=== PATIENT | female | born 2000 | race Caucasian/White ===

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

== ENCOUNTER 2023-10-18 10:44 | Emergency (ER) | payer OTHER ==
[2023-10-18 10:50] VITALS: RESP 16; TEMP 98.5
--- NOTE | 2023-10-18 11:42 | ED ---
Female Urogenital HPI - General Chief complaint: Vaginal Bleeding Stated complaint: 7wks preg,bleeding Time Seen by Provider: 10/18/23 11:40 Source: patient, RN notes reviewed Mode of arrival: ambulatory Limitations: no limitations - History of Present Illness Initial comments: 22-year-old female G3, P1 at approximately 7 weeks gestation presenting with vaginal bleeding x 1 day with associated abdominal cramping. States she noticed bright red blood when she wiped earlier today and has had light vaginal spotting since with bilateral pelvic cramping. Denies urinary symptoms, syncope, lightheadedness, vomiting. - Related Data Home Medications Medication Instructions Recorded Confirmed Norelgestromin/Ethin.estradiol 1 patch TRANSDERM MO 10/30/20 10/30/20 [Xulane 150-35 Mcg/Day Patch] Allergies Allergy/AdvReac Type Severity Reaction Status Date / Time No Known Allergies Allergy Verified 10/18/23 10:50 Review of Systems ROS Statement: Those systems with pertinent positive or pertinent negative responses have been documented in the HPI. ROS Other: All systems not noted in ROS Statement are negative. Past Medical History Past Medical History: No Reported History Additional Past Medical History / Comment(s): depression, self-harm - cutting, ovarian cyst History of Any Multi-Drug Resistant Organisms: None Reported Past Surgical History: No Surgical Hx Reported Past Anesthesia/Blood Transfusion Reactions: No Reported Reaction Past Psychological History: Depression Smoking Status: Current every day smoker Past Alcohol Use History: None Reported Past Drug Use History: None Reported - Past Family History Mother Family Medical History: Hypertension General Exam Limitations: no limitations General appearance: alert, in no apparent distress Head exam: Present: atraumatic, normocephalic, normal inspection Eye exam: Present: normal appearance, PERRL, EOMI. Absent: scleral icterus, conjunctival injection, periorbital swelling GI/Abdominal exam: Present: soft, normal bowel sounds. Absent: distended, tenderness, guarding, rebound, rigid Back exam: Absent: CVA tenderness (R), CVA tenderness (L) Neurological exam: Present: alert, oriented X3 Psychiatric exam: Present: normal affect, normal mood Skin exam: Present: warm, dry, intact, normal color. Absent: rash Course Vital Signs 10/18/23 10:48 Temperature 98.5 F Pulse Rate 80 Respiratory 16 Rate Blood Pressure 115/79 O2 Sat by Pulse 98 Oximetry Medical Decision Making - Medical Decision Making Was pt. sent in by a medical professional or institution (, PK, COMMERCIAL DRAFTER, urgent care, hospital, or care home...) When possible be specific @ -No Did you speak to anyone other than the patient for history (EMS, parent, family, police, friend...)? What history was obtained from this source @ -No Did you review nursing and triage notes (agree or disagree)? Why? @ -I reviewed and agree with nursing and triage notes Were old charts reviewed (outside hosp., previous admission, EMS record, old EKG, old radiological studies, urgent care reports/EKG's, care home records)? Report findings @ -Previous lab work reviewed from 04/21/2019-patient is blood type O+ Differential Diagnosis (chest pain, altered mental status, abdominal pain women, abdominal pain men, vaginal bleeding, weakness, fever, dyspnea, syncope, headache, dizziness, GI bleed, back pain, seizure, CVA, palpatations, mental health, musculoskeletal)? @ -Differential Vaginal Bleeding: Spontaneous , threatened , molar , ectopic , bloody show, incompetent cervix, abruptioplacenta, placenta previa, uterine rupture, dysfunctional uterine bleeding, hemorrhage, uterine fibr oids, this is not meant to be an all-inclusive list. EKG interpreted by me (3pts min.). @ -None X-rays interpreted by me (1pt min.). @ -None done CT interpreted by me (1pt min.). @ -None done U/S interpreted by me (1pt. min.). @ -Ultrasound revealed single intrauterine gestational sac, pole not identified. Mean sac diameter of 1.14 cm compatible with 6 weeks 2 days gestation, possible blighted ovum What testing was considered but not performed or refused? (CT, X-rays, U/S, labs)? Why? @ -Blood type and screen and performed due to known blood type of O+ on 04/21/2019 What meds were considered but not given or refused? Why? @ -None Did you discuss the management of the patient with other professionals (professionals i.e. [place], COMMERCIAL DRAFTER, lab, RT, psych nurse, licensed social worker, auto heater mechanic, teacher, registration officer, case assembler)? Give summary @ -No Was smoking cessation discussed for >3mins.? @ -No Was critical care preformed (if so, how long)? @ -No Were there social determinants of health that impacted care today? How? (Homelessness, low income, unemployed, alcoholism, drug addiction, trans portation, low edu. Level, literacy, decrease access to med. care, [facility], rehab)? @ -No Was there de-escalation of care discussed even if they declined (Discuss DNR or withdrawal of care, Hospice)? DNR status @ -No What co-morbidities impacted this encounter? (DM, HTN, Smoking, COPD, CAD, Cancer, CVA, ARF, Chemo, Hep., AIDS, mental health diagnosis, sleep apnea, morbid obesity)? @ -None Was patient admitted / discharged? Hospital course, mention meds given and route, prescriptions, significant lab abnormalities, going to OR and other pertinent info. @ -Patient was discharged. Patient was seen and evaluated for vaginal bleeding x 1 day at approximately 7 weeks gestation. Vital signs are within normal limits. No abdominal tenderness to palpation of abdomen. Lab work including CBC, CMP, lactic acid was unremarkable. Hemoglobin is stable 13.6. Beta-hCG 3860.9. Ultrasound reveals single intrauterine gestational sac, pole not identified. Discussed findings and diagnosis of threatened with patient. Advised to follow-up in 2 days for repeat hCG levels. Return precauti ons discussed and patient is agreeable to plan. Case was discussed with my ED attending Dr. Rosario. Patient discharged in stable condition. Undiagnosed new problem with uncertain prognosis? @ -No Drug Therapy requiring intensive monitoring for toxicity (Heparin, Nitro, Insulin, Cardizem)? @ -No Were any procedures done? @ -No Diagnosis/symptom? @ -Threatened Acute, or Chronic, or Acute on Chronic? @ -Acute Uncomplicated (without systemic symptoms) or Complicated (systemic symptoms)? @ -Uncomplicated Side effects of treatment? @ -No Exacerbation, Progression, or Severe Exacerbation? @ -No Poses a threat to life or bodily function? How? (Chest pain, [place], [place], pneumonia, PE, COPD, DKA, ARF, appy, cholecystitis, CVA, Diverticulitis, Homicidal, Suicidal, threat to staff... and all critical care pts) @ -Not at this time - Lab Data Result diagrams: 10/18/23 11:22 10/18/23 11:21 Lab Results 10/18/23 10/18/23 10/18/23 Range/Units 11:21 11:22 11:22 WBC 4.5 (3.8-10.6) k/uL RBC 4.40 (3.80-5.40) m/uL Hgb 13.6 (11.4-16.0) gm/dL Hct 40.3 (34.0-46.0) % MCV 91.4 (80.0-100.0) fL MCH 30.9 (25.0-35.0) pg MCHC 33.8 (31.0-37.0) g/dL RDW 12.0 (11.5-15.5) % Plt Count 310 (150-450) k/uL MPV 7.0 Neutrophils % 57 % Lymphocytes % 34 % Monocytes % 5 % Eosinophils % 1 % Basophils % 1 % Neutrophils # 2.5 (1.3-7.7) k/uL Lymphocytes # 1.5 (1.0-4.8) k/uL Monocytes # 0.2 (0-1.0) k/uL Eosinophils # 0.0 (0-0.7) k/uL Basophils # 0.0 (0-0.2) k/uL Sodium 137 (137-145) mmol/L Potassium 4.2 (3.5-5.1) mmol/L Chloride 107 (98-107) mmol/L Carbon Dioxide 23 (22-30) mmol/L Anion Gap 7 mmol/L BUN 6 L (7-17) mg/dL Creatinine 0.64 (0.52-1.04) mg/dL Est GFR (CKD-EPI)AfAm >90 (>60 ml/min/1.73 sqM) Est GFR (CKD-EPI)NonAf >90 (>60 ml/min/1.73 sqM) Glucose 87 (74-99) mg/dL Plasma Lactic Acid Binh 0.7 (0.7-2.0) mmol/L Calcium 9.6 (8.4-10.2) mg/dL Total Bilirubin 0.9 (0.2-1.3) mg/dL AST 28 (14-36) U/L ALT 13 (4-34) U/L Alkaline Phosphatase 56 (38-126) U/L Total Protein 7.3 (6.3-8.2) g/dL Albumin 4.6 (3.5-5.0) g/dL HCG, Quant 3860.9 mIU/mL Urine Color Urine Appearance (Clear) Urine pH (5.0-8.0) Ur Specific [place] (1.001-1.035) Urine Protein (Negative) Urine Glucose (UA) (Negative) Urine Ketones (Negative) Urine Blood (Negative) Urine Nitrite (Negative) Urine Bilirubin (Negative) Urine Urobilinogen (<2.0) mg/dL Ur Leukocyte Esterase (Negative) Urine RBC (0-5) /hpf Urine WBC (0-5) /hpf Ur Squamous Epith Cells (0-4) /hpf Urine Mucus (None) /hpf 10/18/23 Range/Units 11:31 WBC (3.8-10.6) k/uL RBC (3.80-5.40) m/uL Hgb (11.4-16.0) gm/dL Hct (34.0-46.0) % MCV (80.0-100.0) fL MCH (25.0-35.0) pg MCHC (31.0-37.0) g/dL RDW (11.5-15.5) % Plt Count (150-450) k/uL MPV Neutrophils % % Lymphocytes % % Monocytes % % Eosinophils % % Basophils % % Neutrophils # (1.3-7.7) k/uL Lymphocytes # (1.0-4.8) k/uL Monocytes # (0-1.0) k/uL Eosinophils # (0-0.7) k/uL Basophils # (0-0.2) k/uL Sodium (137-145) mmol/L Potassium (3.5-5.1) mmol/L Chloride (98-107) mmol/L Carbon Dioxide (22-30) mmol/L Anion Gap mmol/L BUN (7-17) mg/dL Creatinine (0.52-1.04) mg/dL Est GFR (CKD-EPI)AfAm (>60 ml/min/1.73 sqM) Est GFR (CKD-EPI)NonAf (>60 ml/min/1.73 sqM) Glucose (74-99) mg/dL Plasma Lactic Acid Binh (0.7-2.0) mmol/L Calcium (8.4-10.2) mg/dL Total Bilirubin (0.2-1.3) mg/dL AST (14-36) U/L ALT (4-34) U/L Alkaline Phosphatase (38-126) U/L Total Protein (6.3-8.2) g/dL Albumin (3.5-5.0) g/dL HCG, Quant mIU/mL Urine Color Colorless Urine Appearance Clear (Clear) Urine pH 7.5 (5.0-8.0) Ur Specific [place] 1.014 (1.001-1.035) Urine Protein Negative (Negative) Urine Glucose (UA) Negative (Negative) Urine Ketones Trace H (Negative) Urine Blood Trace H (Negative) Urine Nitrite Negative (Negative) Urine Bilirubin Negative (Negative) Urine Urobilinogen <2.0 (<2.0) mg/dL Ur Leukocyte Esterase Negative (Negative) Urine RBC <1 (0-5) /hpf Urine WBC <1 (0-5) /hpf Ur Squamous Epith Cells 2 (0-4) /hpf Urine Mucus Rare H (None) /hpf Disposition Clinical Impression: Threatened Disposition: HOME SELF-CARE Condition: Stable Instructions (If sedation given, give patient instructions): Threatened Miscarriage (ED) Additional Instructions: Follow-up in 2 days for beta-hCG levels as discussed. Please return to the Emergency Department if symptoms worsen or any other concerns. Is patient prescribed a controlled substance at d/c from ED?: No Referrals: Griffin Barnes MD [Primary Care Provider] - 1-2 days Time of Disposition: 13:16
[2023-10-18 11:47] LABS: Appearance,Urine Clear (Clear); Bilirubin,Urine Negative (Negative); Blood,Urine Trace (Negative); Color,Urine Colorless; Glucose,Urine (UA) Negative (Negative); Ketones,Urine Trace (Negative); Leukocyte Esterase,Urine Negative (Negative); Mucus,Urine Rare /hpf; Nitrite,Urine Negative (Negative); PH, Urine 7.5 (5.0-8.0); Protein,Urine Negative (Negative); RBC,Urine <1 /hpf (0-5); Specific Gravity,Urine 1.014 (1.001-1.035); Squamous Epithelial Cell,Urine 2 /hpf (0-4); Urobilinogen,Urine <2.0 mg/dL (<2.0); WBC,Urine <1 /hpf (0-5)
[2023-10-18 11:48] LABS: Basophils % (A) 1 %; Eosinophils % (A) 1 %; HCT 40.3 % (34.0-46.0); HGB 13.6 gm/dL (11.4-16.0); Lymphocytes # (A) 1.5 k/uL (1.0-4.8); Lymphocytes % (A) 34 %; MCH 30.9 pg (25.0-35.0); MCHC 33.8 g/dL (31.0-37.0); MCV 91.4 fL (80.0-100.0); Monocytes # (A) 0.2 k/uL (0-1.0); Monocytes % (A) 5 %; Neutrophils # (A) 2.5 k/uL (1.3-7.7); Neutrophils % (A) 57 %; Platelet Count 310 k/uL (150-450); WBC 4.5 k/uL (3.8-10.6)
[2023-10-18 11:59] LABS: ALT 13 U/L (4-34); AST 28 U/L (14-36); African American GFR (CKD) >90 (>60 ml/min/1.73 sqM); Albumin 4.6 g/dL (3.5-5.0); Alkaline Phosphatase 56 U/L (38-126); Anion Gap 7 mmol/L; Blood Urea Nitrogen 6 mg/dL (7-17); Calcium 9.6 mg/dL (8.4-10.2); Carbon Dioxide 23 mmol/L (22-30); Chloride 107 mmol/L (98-107); Glucose 87 mg/dL (74-99); Non-African American GFR(CKD) >90 (>60 ml/min/1.73 sqM); Potassium 4.2 mmol/L (3.5-5.1); Sodium 137 mmol/L (137-145); Total Bilirubin 0.9 mg/dL (0.2-1.3); Total Protein 7.3 g/dL (6.3-8.2)
[2023-10-18 12:14] LABS: HCG,Quantitative Serum 3860.9 mIU/mL
--- NOTE | 2023-10-18 12:42 | US ---
EXAMINATION TYPE: Transabdominal DATE OF EXAM: 10/18/2023 11:52 AM COMPARISON: NONE CLINICAL INDICATION: Female, 22 years old with history of vaginal bleeding in ; light bleedi ng today, patient states she went to [facility] on Oct 04 and sac measured 5w6d then and cyst seen on left ovary, no pain today, EXAM PERFORMED: OBTA EXAM MEASUREMENTS: GESTATIONAL AGE / DATING Physician Established: not established yet Dates by LMP: (8 weeks/3 days) EDC: 05/26/2024 Dates by First Scan: no previous scan here Dates by Current Scan for: (6 weeks/2 days) EDC: 06/10/2024 MATERNAL ANATOMY Uterus: 8.0 x 6.4 x 5.9cm Right Ovary: 2.5 x 2.4 x 2.0cm Left Ovary: 5.0 x 3.6 x 3.9cm Post CDS / Adnexa: wnl Presence of free fluid: no Presence of corpus luteal cyst: left ovary = 3.6 x 2.9 x 3.0cm Presence of subchorionic bleed: no GESTATION / SURVEY CRL: too early versus blighted ovum or other etiology MSD: 1.4cm (6 weeks/2 days). Note that by history 12 days prior mean sac diameter had a 5 week 6 day estimated gestational age Yolk Sac (normal less than 6mm): 0.3cm IUP: gestational sac within UT seen Date of LMP: 08/20/2023 Beta HcG (if available): pending IMPRESSION: 1. Single intrauterine gestational sac. pole however is not identified. Mean sac diameter of 1. 42 cm is compatible with a 6 week 2 day gestation. Findings may be related to a blighted ovum. Short- term follow-up and correlation with serial beta hCG is recommended
[2023-10-18 13:23] VITALS: BP 122/72; PULSE 97
== END 2023-10-18 13:23 | disposition home or self-care (01) ==
LOC: EC 10:44
DX: O20.0 Threatened abortion (principal); O99.331 Smoking (tobacco) complicating pregnancy, first trimester; F17.200 Nicotine dependence, unspecified, uncomplicated; Z3A.01 Less than 8 weeks gestation of pregnancy
CPT/HCPCS: 36415; 76801; 80053; 81001; 83605; 84702; 85025; 99284

== ENCOUNTER 2024-03-13 12:52 | Emergency (ER) | payer OTHER, BC ==
[2024-03-13 12:55] VITALS: RESP 18
[2024-03-13] MEDS: ACETAMINOPHEN TAB 500 MG TAB PO STA (13:36)
[2024-03-13] MEDS: SODIUM CHLORIDE 0.9% 1,000 ML IV STA (13:37)
--- NOTE | 2024-03-13 13:46 | ED ---
Abdominal Pain HPI - General Chief Complaint: Abdominal Pain Stated Complaint: 17 wks/ abd pain Time Seen by Provider: 03/13/24 12:56 Source: patient, RN notes reviewed Mode of arrival: ambulatory Limitations: no limitations - History of Present Illness Initial Comments: This is a 23-year-old female who presents to the emergency department for abdominal pain. Patient is 17 weeks and . For the last couple of days she has had mid to lower abdominal pain, states that it goes from her umbilicus down to her pelvis. Denies any vaginal bleeding. She does have occasional nausea with this. She is currently established with Dr. Vargas, OB/G YN. However, she has not contacted her about this pain. She has experienced round ligament pain in prior pregnancies, but states that this feels different. She did go to urgent care before coming here, but was advised to come here for further evaluation, as they could not do any testing on her. MD Complaint: abdominal pain - Related Data Home Medications Medication Instructions Recorded Confirmed Norelgestromin/Ethin.estradiol 1 patch TRANSDERM MO 10/30/20 10/30/20 [Xulane 150-35 Mcg/Day Patch] Allergies Allergy/AdvReac Type Severity Reaction Status Date / Time No Known Allergies Allergy Verified 03/13/24 12:55 Review of Systems ROS Statement: Those systems with pertinent positive or pertinent negative responses have been documented in the HPI. ROS Other: All systems not noted in ROS Statement are negative. Past Medical History Past Medical History: No Reported History Additional Past Medical History / Comment(s): depression, self-harm - cutting, ovarian cyst History of Any Multi-Drug Resistant Organisms: None Reported Past Surgical History: No Surgical Hx Reported Past Anesthesia/Blood Transfusion Reactions: No Reported Reaction Past Psychological History: Depression Smoking Status: Current every day smoker Past Alcohol Use History: None Reported Past Drug Use History: None Reported - Past Family History Mother Family Medical History: Hypertension General Exam Limitations: no limitations General appearance: alert, in no apparent distress Head exam: Present: atraumatic, normocephalic, normal inspection Respiratory exam: Present: normal lung sounds bilaterally. Absent: respiratory distress, wheezes, rales, rhonchi, stridor Cardiovascular Exam: Present: regular rate, normal rhythm, normal heart sounds. Absent: systolic murmur, diastolic murmur, rubs, gallop, clicks Neurological exam: Present: alert, oriented X3, CN II-XII intact Psychiatric exam: Present: normal affect, normal mood Skin exam: Present: warm, dry, intact, normal color. Absent: rash Course Vital Signs 03/13/24 03/13/24 12:53 15:13 Pulse Rate 111 H 72 Respiratory 18 18 Rate Blood Pressure 132/78 106/51 O2 Sat by Pulse 98 100 Oximetry Medical Decision Making - Medical Decision Making This is a 23 year old female who presents to the emergency department for abdominal pain in . Was pt. sent in by a medical professional or institution? @ -No Did you speak to anyone other than the patient for history? @ -No Did you review nursing and triage notes? @ -Yes, and I agree, it is accurate with regards to the patient's symptoms. Were old charts reviewed? @ -No Differential Diagnosis? @ -Differential Abdominal Pain Women: Appendicitis, Cholecystitis, diverticulosis, ischemic bowel, pancreatitis, hepatitis, UTI, gastroenteritis, AAA, incarcerated hernia, bowel obstruction, constipation, inflammatory bowel, hepatitis, peptic ulcer disease, splenic infarction, perforated viscus, vulvitis, ovarian torsion, PID, kidney stone, placenta abruption, this is not meant to be an all-inclusive list EKG interpreted by me (3pts min.)? @ -Not obtained X-rays interpreted by me (1pt min.)? @ -Not obtained CT interpreted by me (1pt min.)? @ -Not obtained U/S interpreted by me (1pt. min.)? @ -Obstetrics ultrasound obtained. My interpretation identifies a single live intrauterine . What testing was considered but not performed? (CT, X-rays, U/S, labs)? Why? @ -None What meds were considered but not given? Why? @ -None Did you discuss the management of the patient with other professionals? @ -No Did you reconcile home meds? @ -No Was smoking cessation discussed for >3mins.? @ -No Was critical care preformed (if so, how long)? @ -No Were there social determinants of health that impacted care today? How? (Homelessness, low income, unemployed, alcoholism, drug addiction, transportation, low edu. Level, literacy, decrease access to med. care, fpc, rehab)? @ -No Was there de-escalation of care discussed even if they declined? (Discuss DNR or withdrawal of care, Hospice)? @ -No What co-morbidities impacted this encounter? (DM, HTN, Smoking, COPD, CAD, Cancer, CVA, Hep., AIDS, mental health diagnosis, sleep apnea, morbid obesity)? @ - Was patient admitted / discharged? @ -Discharged. Lab work relatively unremarkable. Urinalysis negative for signs of infection. Obstetrics ultrasound obtained demonstrating a single live intrauterine with an estimated gestational age of 17 weeks. Tylenol administered for pain relief. Discussed that pain could be related to changes expected with . Advised she discuss these concerns with her QUALITY CONTROL CHECKER and to continue taking Tylenol as needed for pain relief. Patient discharged home in stable condition. Case discussed with ED attending Dr. Fuentes. Return precautions reviewed in depth, the patient is instructed to return to the emergency department with any new, worsening, or concerning symptoms. Patient verbalized understanding. Undiagnosed new problem with uncertain prognosis? @ -None Drug Therapy requiring intensive monitoring for toxicity (Heparin, Nitro, Insulin, Cardizem)? @ -None Were any procedures done? @ -None Diagnosis/symptom? @ -Abdominal pain in Acute, or Chronic, or Acute on Chronic? @ -Acute Uncomplicated (without systemic symptoms) or Complicated (systemic symptoms)? @ -Uncomplicated Side effects of treatment? @ -None Exacerbation, Progression, or Severe Exacerbation] @ -Not applicable Poses a threat to life or bodily function? @ -No - Lab Data Result diagrams: 03/13/24 13:46 03/13/24 13:46 Lab Results 03/13/24 03/13/24 03/13/24 Range/Units 13:46 13:46 13:46 WBC 7.4 (3.8-10.6) k/uL RBC 3.58 L (3.80-5.40) m/uL Hgb 11.5 (11.4-16.0) gm/dL Hct 32.6 L (34.0-46.0) % MCV 91.1 (80.0-100.0) fL MCH 32.0 (25.0-35.0) pg MCHC 35.1 (31.0-37.0) g/dL RDW 13.1 (11.5-15.5) % Plt Count 283 (150-450) k/uL MPV 7.1 Neutrophils % 74 % Lymphocytes % 20 % Monocytes % 4 % Eosinophils % 1 % Basophils % 1 % Neutrophils # 5.4 (1.3-7.7) k/uL Lymphocytes # 1.5 (1.0-4.8) k/uL Monocytes # 0.3 (0-1.0) k/uL Eosinophils # 0.1 (0-0.7) k/uL Basophils # 0.1 (0-0.2) k/uL Sodium 134 L (137-145) mmol/L Potassium 3.9 (3.5-5.1) mmol/L Chloride 104 (98-107) mmol/L Carbon Dioxide 21 L (22-30) mmol/L Anion Gap 9 mmol/L BUN 7 (7-17) mg/dL Creatinine 0.51 L (0.52-1.04) mg/dL Est GFR (CKD-EPI)AfAm >90 (>60 ml/min/1.73 sqM) Est GFR (CKD-EPI)NonAf >90 (>60 ml/min/1.73 sqM) Glucose 75 (74-99) mg/dL Calcium 8.8 (8.4-10.2) mg/dL Total Bilirubin 0.4 (0.2-1.3) mg/dL AST 21 (14-36) U/L ALT 16 (4-34) U/L Alkaline Phosphatase 51 (38-126) U/L Total Protein 6.5 (6.3-8.2) g/dL Albumin 3.8 (3.5-5.0) g/dL Lipase 126 (23-300) U/L HCG, Quant 21467.7 mIU/mL Urine Color Light Yellow Urine Appearance Turbid H (Clear) Urine pH 8.5 H (5.0-8.0) Ur Specific [place] 1.022 (1.001-1.035) Urine Protein Trace H (Negative) Urine Glucose (UA) Negative (Negative) Urine Ketones Negative (Negative) Urine Blood Negative (Negative) Urine Nitrite Negative (Negative) Urine Bilirubin Negative (Negative) Urine Urobilinogen <2.0 (<2.0) mg/dL Ur Leukocyte Esterase Negative (Negative) Urine RBC 1 (0-5) /hpf Urine WBC <1 (0-5) /hpf Ur Squamous Epith Cells 2 (0-4) /hpf Urine Mucus Rare H (None) /hpf Urine Yeast (Budding) Many H (None) /hpf - Radiology Data Radiology results: report reviewed, image reviewed Disposition Clinical Impression: Abdominal pain in Disposition: HOME SELF-CARE Instructions (If sedation given, give patient instructions): Abdominal Pain in (ED) Additional Instructions: Return to the emergency department with any new, worsening, or concerning symptoms. Take Tylenol as needed for pain relief. Follow-up with Dr. Vargas. Is patient prescribed a controlled substance at d/c from ED?: No Referrals: Griffin Barnes MD [Primary Care Provider] - 1-2 days Time of Disposition: 14:59
[2024-03-13 14:11] LABS: Basophils # (A) 0.1 k/uL (0-0.2); Basophils % (A) 1 %; Eosinophils # (A) 0.1 k/uL (0-0.7); Eosinophils % (A) 1 %; HCT 32.6 % (34.0-46.0); HGB 11.5 gm/dL (11.4-16.0); Lymphocytes # (A) 1.5 k/uL (1.0-4.8); Lymphocytes % (A) 20 %; MCHC 35.1 g/dL (31.0-37.0); MCV 91.1 fL (80.0-100.0); Mean Platelet Volume 7.1; Monocytes # (A) 0.3 k/uL (0-1.0); Monocytes % (A) 4 %; Neutrophils # (A) 5.4 k/uL (1.3-7.7); Neutrophils % (A) 74 %; Platelet Count 283 k/uL (150-450); RBC 3.58 m/uL (3.80-5.40); RDW 13.1 % (11.5-15.5); WBC 7.4 k/uL (3.8-10.6)
--- NOTE | 2024-03-13 14:18 | US ---
EXAMINATION TYPE: US OB >= 14 wk fetus DATE OF EXAM: 03/13/2024 COMPARISON: 10/18/2023 CLINICAL INDICATION: Female, 23 years old with history of Abdominal pain in ; Whole pelvic p ain x 2 days TECHNIQUE: Transabdominal (TA) FINDINGS: GESTATIONAL AGE / DATING Physician Established: (17 weeks/1 days) EDC: 08/20/2024 Dates by LMP: (17 weeks/1 days) EDC: 08/20/2024 Dates by First Scan: (17 weeks/1 days) EDC: 08/20/2024 Dates by Current Scan: (17 weeks/3 days) EDC: 08/18/2024 Beta HCG (if available): Not done by ER staff SURVEY IUP: Single PLACENTA: Anterior lower uterine segment 2.1 cm from internal cervical os PREVIA: Low Lying MARIBEL: 11.2 cm Normal CERVICAL LENGTH (transabdominal: norm > 3.0cm): 3.7 cm BIOMETRY PRESENTATION: Breech LIE: Longitudinal BPD: 3.7 cm 17 weeks / 3 days HC: 13.85 cm 17 weeks / 2 days AC: 11.655 cm 17 weeks / 3 days FL: 2.36 cm 17 weeks / 1 days ESTIMATED WEIGHT IN GRAMS: 188 grams ESTIMATED WEIGHT IN LBS/OZ: 0 lbs. 7 oz. WEIGHT PERCENTAGE BASED ON ESTABLISHED DATES: 52% HC/AC: 1.19 Normal FL/AC: 20% Normal HEART RATE: 142 bpm RHYTHM: Normal IMPRESSION: Single live intrauterine with estimated gestational age of 17 weeks 3 days. survey me asurements provided above. Appropriate OPERATIONS MANAGEMENT PROFESSIONALS clinical follow-up recommended. [facility], , 03/13/2024 2:15 PM
[2024-03-13 14:26] LABS: ALT 16 U/L (4-34); AST 21 U/L (14-36); African American GFR (CKD) >90 (>60 ml/min/1.73 sqM); Albumin 3.8 g/dL (3.5-5.0); Alkaline Phosphatase 51 U/L (38-126); Anion Gap 9 mmol/L; Blood Urea Nitrogen 7 mg/dL (7-17); Calcium 8.8 mg/dL (8.4-10.2); Carbon Dioxide 21 mmol/L (22-30); Chloride 104 mmol/L (98-107); Glucose 75 mg/dL (74-99); Lipase 126 U/L (23-300); Non-African American GFR(CKD) >90 (>60 ml/min/1.73 sqM); Potassium 3.9 mmol/L (3.5-5.1); Sodium 134 mmol/L (137-145); Total Bilirubin 0.4 mg/dL (0.2-1.3); Total Protein 6.5 g/dL (6.3-8.2)
[2024-03-13 14:36] LABS: Appearance,Urine Turbid (Clear); Bilirubin,Urine Negative (Negative); Blood,Urine Negative (Negative); Budding Yeast,Urine Many /hpf; Color,Urine Light Yellow; Glucose,Urine (UA) Negative (Negative); Ketones,Urine Negative (Negative); Leukocyte Esterase,Urine Negative (Negative); Mucus,Urine Rare /hpf; Nitrite,Urine Negative (Negative); PH, Urine 8.5 (5.0-8.0); Protein,Urine Trace (Negative); RBC,Urine 1 /hpf (0-5); Specific Gravity,Urine 1.022 (1.001-1.035); Squamous Epithelial Cell,Urine 2 /hpf (0-4); Urobilinogen,Urine <2.0 mg/dL (<2.0); WBC,Urine <1 /hpf (0-5)
[2024-03-13 15:12] LABS: HCG,Quantitative Serum 49509.7 mIU/mL
[2024-03-13 15:14] VITALS: BP 106/51; PULSE 72
== END 2024-03-13 15:17 | disposition home or self-care (01) ==
LOC: EC 12:52
DX: O99.612 Diseases of the digestive system complicating pregnancy, second trimester (principal); O99.332 Smoking (tobacco) complicating pregnancy, second trimester; F17.200 Nicotine dependence, unspecified, uncomplicated; Z3A.17 17 weeks gestation of pregnancy
CPT/HCPCS: 36415; 76805; 80053; 81001; 83690; 84702; 85025; 99284

== ENCOUNTER → 2024-04-29 | Outpatient (CLI) | payer OTHER, BC ==
[2024-04-29 11:25] VITALS: BP 128/72; PULSE 117; RESP 16; TEMP 97.5
== END | disposition home or self-care (01) ==
LOC: FBPOP 10:11
PROVIDERS: ATTEND Obstetrics & Gynecology
DX: Z53.9 Procedure and treatment not carried out, unspecified reason (principal)
CPT/HCPCS: 99213; 99215

== ENCOUNTER 2024-05-19 11:41 | Outpatient (CLI) | payer OTHER, BC ==
[2024-05-19 12:12] LABS: Appearance,Urine Clear (Clear); Bilirubin,Urine Negative (Negative); Blood,Urine Negative (Negative); Color,Urine Yellow; Glucose,Urine (UA) Negative (Negative); Ketones,Urine 2+ (Negative); Leukocyte Esterase,Urine Negative (Negative); Nitrite,Urine Negative (Negative); Protein,Urine Negative (Negative); Specific Gravity,Urine 1.017 (1.001-1.035); Urobilinogen,Urine <2.0 mg/dL (<2.0)
[2024-05-19 12:29] VITALS: BP 122/68; PULSE 110; RESP 18; TEMP 98
== END 2024-05-19 12:30 | disposition home or self-care (01) ==
LOC: FBPOP 11:41
PROVIDERS: ATTEND Obstetrics & Gynecology
DX: Z53.9 Procedure and treatment not carried out, unspecified reason (principal)
CPT/HCPCS: 81003; G0463; 99215

== ENCOUNTER 2024-07-05 11:20 | Observation (INO) | payer BC, OTHER ==
[2024-07-05 12:43] LABS: Appearance,Urine Clear (Clear); Bilirubin,Urine Negative (Negative); Blood,Urine Negative (Negative); Color,Urine Colorless; Glucose,Urine (UA) Negative (Negative); Ketones,Urine Negative (Negative); Leukocyte Esterase,Urine Negative (Negative); Nitrite,Urine Negative (Negative); PH, Urine 7.5 (5.0-8.0); Protein,Urine Negative (Negative); Specific Gravity,Urine 1.007 (1.001-1.035); Urobilinogen,Urine <2.0 mg/dL (<2.0)
[2024-07-05] MEDS: LACTATED RINGERS 1,000 ML IV SCH (12:45)
[2024-07-05] MEDS: TERBUTALINE 1 MG/ML VIAL SQ PRN (13:27)
[2024-07-05] MEDS: LACTATED RINGERS 1,000 ML IV ONE ×2 (13:35→19:30)
[2024-07-05] MEDS: BETAMET ACET-BETAMETH SOD PHOS 6 MG/ML MDV IM SCH (14:25)
[2024-07-05] MEDS: NIFEdipine 10 MG CAP PO STA (17:34)
[2024-07-05 19:49] LABS: Basophils # (A) 0.05 10*3/uL (0.00-0.10); Basophils % (A) 0.6 %; Eosinophils # (A) 0.05 10*3/uL (0.04-0.35); Eosinophils % (A) 0.6 %; HCT 34.7 % (37.2-46.3); HGB 11.5 g/dL (12.0-15.0); Lymphocytes # (A) 1.66 10*3/uL (0.90-5.00); Lymphocytes % (A) 18.6 %; MCH 31.5 pg (27.0-32.0); MCHC 33.1 g/dL (32.0-37.0); MCV 95.1 fL (80.0-97.0); Mean Platelet Volume 9.6 fL (9.5-12.2); Monocytes # (A) 0.53 10*3/uL (0.20-1.00); Monocytes % (A) 5.9 %; Neutrophils # (A) 6.49 10*3/uL (1.80-7.70); Neutrophils % (A) 72.7 %; Platelet Count 277 10*3/uL (140-440); RBC 3.65 10*6/uL (4.10-5.20); WBC 8.92 10*3/uL (4.50-10.00)
[2024-07-05 20:19] VITALS: TEMP 98.4
[2024-07-05] MEDS ORDERED: MAGNESIUM SULFATE 500 MG/ML 20 ML VIAL ONE (20:51)
[2024-07-05] MEDS ORDERED: SODIUM CHLORIDE 0.9% 50 ML BAG ONE (20:51)
[2024-07-05] MEDS: MAGNESIUM SULFATE MG 6,000 MG in SODIUM CHLORIDE 0.9% 50 ML IVPB ONE (21:15)
--- NOTE | 2024-07-05 21:23 | P.HPOB ---
History of Present Illness H&P Date: 07/05/24 Chief Complaint: 33+ weeks, contractions, increasing discomfort The patient is a 23-year-old 4 para 0-1-2-1 admitted at 33+ weeks as established by last menstrual period and confirmed by second trimester ultrasound. She is initially admitted to triage with contractions and feeling discomfort. Laboratory workup demonstrated no signs or symptoms of infection. She was initially approximately 1 cm dilated but with contractions every 1 to 3 minutes. Initial attempts to control contractions with terbutaline subcutaneously were successful but contractions returned shortly after the terbutaline began to wear off. She then had a dose of Procardia 10 mg which failed to alleviate any contractions. She was admitted for observation as she was thought to have made no significant cervical change but continued to have increasing contractions and increasing discomfort that she is now having to breathe through. Recheck of her cervix demonstrates what is thought to be some change from 1 to 1-1/2 cm, still relatively thick with the vertex and prese ntation at -2 station. Her to this point has been essentially uncomplicated though she does have most recently the fetus growing at the 14th percentile at 32 weeks. On labor delivery, all signs are reassuring with a category 1 heart rate tracing. She does carry history of a previous 35- week delivery in which she dilated fairly rapidly over the course of 4 to 6 hours. An initial dose of betamethasone has been given in triage prior to admission. Obstetrical history: 4 para 0-1-2-1 with 135-week delivery as noted in history of present illness. EDC of 08/20/2024 was established by last menstrual period confirmed by second trimester ultrasound. Laboratory workup demonstrates a blood type of O+ with a negative antibody screen. Rubella status is immune. The remainder of her laboratory workup is within normal limits. 1 hour Glucola was normal. Group B strep status has not yet been determined. Gynecologic history: Unremarkable with no history of any infections to include STDs. Review of Systems Review of systems is confined to history of present illness. Past Medical History Past Medical History: No Reported History Additional Past Medical History / Comment(s): depression, self-harm - cutting, ovarian cyst History of Any Multi-Drug Resistant Organisms: None Reported Past Surgical History: No Surgical Hx Reported Past Anesthesia/Blood Transfusion Reactions: No Reported Reaction Smoking Status: Former smoker - Past Family History Mother Family Medical History: Hypertension Medications and Allergies Home Medications Medication Instructions Recorded Confirmed Type ARIPiprazole [Abilify] 2 mg PO DAILY 04/29/24 07/05/24 History Vit No.179/Iron/Folic 1 tab PO DAILY 04/29/24 07/05/24 History [ Tablet] RX: Aspirin 81 mg PO DAILY 04/29/24 07/05/24 History Ferrous Sulfate [Iron (65 MG 1 tab PO DAILY 07/05/24 07/05/24 History Elemental)] Allergies Allergy/AdvReac Type Severity Reaction Status Date / Time No Known Allergies Allergy Verified 07/05/24 12:12 Exam Vital Signs Temp Pulse Resp BP Pulse Ox 07/05/24 20:10 98.4 F 88 16 121/58 98 Intake and Output 07/05/24 07/05/24 07/05/24 06:59 14:59 22:59 Other: Weight 48.534 kg In general, this is a well-developed, thin white female in some discomfort with contractions. Her heart has a regular rhythm and rate without murmur. Her lungs clear to auscultation bilaterally in all merchant. Her abdomen is gravid, nondistended, has normal active bowel sounds, is soft, nontender, and without any palpable masses aside from uterine fundus. Her extremities are without any cyanosis, clubbing, or edema and are nontender to palpation bilaterally. Digital cervical examination performed by the nursing staff in serial fashion has demonstrated her cervix to go from 1 cm of dilation to 1+ centimeters of dilation, still relatively thick with the vertex and presentation at -2 station. Results Result Diagrams: 07/05/24 12:55 Abnormal Lab Results - Last 24 Hours (Table) 07/05/24 Range/Units 12:55 RBC 3.65 L (4.10-5.20) 10*6/uL Hgb 11.5 L (12.0-15.0) g/dL Hct 34.7 L (37.2-46.3) % Immature Gran # 0.14 H (0.00-0.04) 10*3/uL Assessment and Plan (1) Active labor Current Visit: Yes Status: Acute Code(s): O60.00 - LABOR WITHOUT DELIVERY, UNSPECIFIED TRIMESTER SNOMED Code(s): 8980485 (2) 33 weeks gestation of Current Visit: Yes Status: Acute Code(s): Z3A.33 - 33 WEEKS GESTATION OF SNOMED Code(s): 33813287 Plan: The patient has failed simple measures of toco lysis with terbutaline and Procardia and continues to have increasingly uncomfortable contractions. She has made cervical changes though slight. Given her level of discomfort in her early gestational age, attempts will be made to transfer her to a tertiary care center for potential issues of prematurity for the fetus. 1 dose of be tamethasone has been given and will be repeated in 24 hours. Magnesium sulfate is being loaded right now at 6 g to be followed by 2 g/h for maintenance. A Mathis catheter has been placed. She will also additionally likely be started on prophylactic antibiotics for the next 24 hours. The situation has been explained to the patient at some length and she understands the need for transfer.
[2024-07-05] MEDS ORDERED: MAGNESIUM SULFATE-D5W PMX 1 GM in DEXTROSE/WATER 1 100ML.BAG IVPB SCH (21:30)
[2024-07-05] MEDS: MAGNESIUM SULFATE-WATER PMX 20 GM in WATER FOR INJECTION 1 500ML.BAG IV SCH (21:41)
[2024-07-05 21:58] VITALS: RESP 16
[2024-07-05 22:04] VITALS: BP 129/59; PULSE 109
[2024-07-06 12:56] LABS: Bacteria,Urine Rare /hpf; Budding Yeast,Urine Occasional /hpf; RBC,Urine 1 /hpf (0-5); Squamous Epithelial Cell,Urine <1 /hpf (0-4); WBC,Urine 1 /hpf (0-5)
[2024-07-06] MEDS ORDERED: BETAMET ACET-BETAMETH SOD PHOS 6 MG/ML MDV IM SCH (14:00)
== END 2024-07-05 22:16 | disposition home or self-care (01) ==
LOC: FBPOP 11:20 → 4FBP 19:35
PROVIDERS: ADMIT Obstetrics & Gynecology; ATTEND Obstetrics & Gynecology
DX: O60.03 Preterm labor without delivery, third trimester (principal); O09.213 Supervision of pregnancy with history of pre-term labor, third trimester; Z3A.33 33 weeks gestation of pregnancy; Z79.82 Long term (current) use of aspirin; Z79.899 Other long term (current) drug therapy; Z87.891 Personal history of nicotine dependence
CPT/HCPCS: 59025; 99214; 96360; 96372; 36415; 82731; 85025; 81003; G0378; J3105; J3475 ×2; J0702; 96361

== ENCOUNTER 2024-07-07 07:16 | Outpatient (CLI) | payer BC, OTHER ==
[2024-07-07] MEDS: LACTATED RINGERS 1,000 ML IV ONE (08:55)
[2024-07-07] MEDS: NIFEdipine 10 MG CAP PO PRN (09:11)
[2024-07-07 09:21] LABS: Basophils # (A) 0.03 10*3/uL (0.00-0.10); Basophils % (A) 0.2 %; HCT 28.3 % (37.2-46.3); Lymphocytes # (A) 1.22 10*3/uL (0.90-5.00); MCH 31.6 pg (27.0-32.0); MCHC 33.6 g/dL (32.0-37.0); Mean Platelet Volume 9.6 fL (9.5-12.2); Monocytes # (A) 0.86 10*3/uL (0.20-1.00); Neutrophils # (A) 9.85 10*3/uL (1.80-7.70); Neutrophils % (A) 80.6 %; Platelet Count 246 10*3/uL (140-440); RBC 3.01 10*6/uL (4.10-5.20); RDW 13.3 % (11.5-14.5); WBC 12.23 10*3/uL (4.50-10.00)
[2024-07-07 09:26] LABS: HGB 9.5 g/dL (12.0-15.0)
[2024-07-07 09:30] LABS: Appearance,Urine Clear (Clear); Bilirubin,Urine Negative (Negative); Blood,Urine Negative (Negative); Color,Urine Colorless; Glucose,Urine (UA) Negative (Negative); Ketones,Urine Negative (Negative); Leukocyte Esterase,Urine Negative (Negative); Nitrite,Urine Negative (Negative); Protein,Urine Negative (Negative); Specific Gravity,Urine 1.009 (1.001-1.035); Urobilinogen,Urine <2.0 mg/dL (<2.0)
[2024-07-07] MEDS: LACTATED RINGERS 1,000 ML IV SCH (09:30)
[2024-07-07 09:47] LABS: ALT 14 U/L (4-34); AST 23 U/L (14-36); African American GFR (CKD) >90 (>60 ml/min/1.73 sqM); Blood Urea Nitrogen 5 mg/dL (7-17); LDH 198 U/L (120-246); Non-African American GFR(CKD) >90 (>60 ml/min/1.73 sqM); Uric Acid 2.6 mg/dL (3.7-7.4)
[2024-07-07 09:49] LABS: Creatinine,Urine Random 42.7 mg/dL; Protein/Creatinine Ratio,Urine 0.398
[2024-07-07 10:54] VITALS: BP 116/71; PULSE 104; RESP 16; TEMP 99.1
--- NOTE | 2024-08-06 14:56 | P.MSEPDOC ---
Presenting Problems - Arrival Data Date of Arrival on Unit: 07/07/24 Time of Arrival on Unit: 07:16 Mode of Transport: EMS - Complaint OB-Reason for Admission/Chief Complaint: Possible Onset of Labor, Elevated Blood Pressure Comment: painless contractions since being discharged from [facility], elevated bp at home Medical History - Information : 4 Para: 1 Term: 0 : 1 Abortions: Spontaneous or Elective: 2 Number of Living Children: 1 - Gestational Age Gestational Age by JANA (wks/days): 33 Weeks and 5 Days - History Complications: Prior Review of Systems - Review of Systems Constitutional: No problems Breast: No problems ENT: No problems Cardiovascular: No problems Respiratory: No problems Gastrointestinal: No problems Genitourinary: No problems Musculoskeletal: No problems Neurological: No problems Skin: No problems Vital Signs - Temperature Temperature: 99.1 F Temperature Source: Temporal Artery Scan - Pulse Left Sitting Pulse Rate: 104 Pulse Assessment Method: Automatic Cuff - Respirations Respiratory Rate: 16 Oxygen Delivery Method: Room Air O2 Sat by Pulse Oximetry: 96 - Blood Pressure Left Arm Blood Pressure: 116/71 Blood Pressure Mean: 86 Blood Pressure Source: Automatic Cuff - Comment Vital Signs Comment: bps cycled q 10 minutes, highest bp 117/56 Medical Screen Scoring - Cervical Exam Dilation (cm): 1.5 Effacement (%): 50 Station: -2 Membranes: Intact - Uterine Contractions Frequency From (mins): 1 Frequency To (mins): 6 Duration From (seconds): 40 Duration To (seconds): 70 Intensity: Mild Resting: Soft to palpation - Assessment - Baby A Baseline FHR: 140 Heart Rate - NICHD Category: Category I (Normal) NST: Reactive Physician Notification - Physician Notified Physician Notified Date: 07/07/24 Physician Notified Time: 09:50 Physician: Esha Francis New Order Received: Yes (D/C) Maternal Triage Index - Urgent/Priority 2 Urgent Priority 2: Yes Provider Notified: Esha Francis Provider Notified Time: 08:19 Criteria Met for Priority 2: traceable painless contractions, reactive nst with variables, bps wnl Disposition - Disposition OB Disposition: Discharge to home Discharge Date: 07/07/24 Discharge Time: 10:05 I agree with the RN Medical Screening Exam: Yes Physician's MSE Comment: I have neither seen nor examined the patient Case reviewed; plan agreed upon as documented in EMR&OBIX.: Yes Diagnosis: RELATED CONDITIONS, UNSPECIFIED, THIRD TRIMESTER
== END 2024-07-07 10:05 | disposition home or self-care (01) ==
LOC: FBPOP 07:16
PROVIDERS: ATTEND Obstetrics & Gynecology
DX: O26.893 Other specified pregnancy related conditions, third trimester (principal); Z87.891 Personal history of nicotine dependence; Z3A.33 33 weeks gestation of pregnancy
CPT/HCPCS: 36415; 59025; 81003; 82565; 82570; 83615; 84112; 84156; 84450; 84460; 84520; 84550; 85025; 96360; 96361; 99215

== ENCOUNTER 2024-07-09 20:39 | Outpatient (CLI) | payer BC, OTHER ==
[2024-07-09] MEDS: LACTATED RINGERS 1,000 ML IV ONE (21:40)
[2024-07-09 22:13] LABS: Amorphous Sediment,Urine Few /hpf; Appearance,Urine Cloudy (Clear); Bilirubin,Urine Negative (Negative); Blood,Urine Negative (Negative); Color,Urine Colorless; Glucose,Urine (UA) Negative (Negative); Ketones,Urine Negative (Negative); Leukocyte Esterase,Urine Trace (Negative); Mucus,Urine Rare /hpf; Nitrite,Urine Negative (Negative); Protein,Urine Negative (Negative); RBC,Urine 1 /hpf (0-5); Specific Gravity,Urine 1.014 (1.001-1.035); Squamous Epithelial Cell,Urine 2 /hpf (0-4); Urobilinogen,Urine <2.0 mg/dL (<2.0); WBC,Urine 1 /hpf (0-5)
[2024-07-09 23:09] VITALS: BP 130/80; PULSE 109; RESP 18; TEMP 98
--- NOTE | 2024-08-06 14:58 | P.MSEPDOC ---
Presenting Problems - Arrival Data Date of Arrival on Unit: 07/09/24 Time of Arrival on Unit: 20:39 Mode of Transport: Ambulatory - Complaint OB-Reason for Admission/Chief Complaint: Possible Onset of Labor, Headache, Visual Disturbances Comment: Patient came in with complaints of ctx, cramping, some vision changes on occasion, headache at home about 45minutes ago that she took tylenol for. Medical History - Information : 4 Para: 1 Term: 0 : 1 Abortions: Spontaneous or Elective: 2 Number of Living Children: 1 - Gestational Age Gestational Age by JANA (wks/days): 34 Weeks and 0 Days - History Complications: Prior Review of Systems - Review of Systems Constitutional: No problems Breast: No problems ENT: No problems Cardiovascular: No problems Respiratory: No problems Gastrointestinal: No problems Genitourinary: No problems Musculoskeletal: No problems Neurological: No problems Skin: No problems Vital Signs - Temperature Temperature: 98.0 F Temperature Source: Oral - Pulse Pulse Oximetery Pulse Rate: 109 Pulse Assessment Method: Pulse Oximetry - Respirations Respiratory Rate: 18 Oxygen Delivery Method: Room Air O2 Sat by Pulse Oximetry: 99 - Blood Pressure Right Arm Blood Pressure: 130/80 Blood Pressure Mean: 96 Blood Pressure Source: Automatic Cuff Medical Screen Scoring - Cervical Exam Dilation (cm): 1.5 Effacement (%): 50 Station: -1 Membranes: Intact - Uterine Contractions Frequency From (mins): 3 Frequency To (mins): 16 Duration From (seconds): 40 Duration To (seconds): 90 Intensity: Mild Resting: Soft to palpation - Assessment - Baby A Baseline FHR: 140 NST: Reactive Physician Notification - Physician Notified Physician Notified Date: 07/09/24 Physician Notified Time: 21:28 Physician: Kira Hancock Order Received: Yes (Orders for 1L and Urinalysis) Maternal Triage Index - Maternal Triage Index Presenting for scheduled procedure w/no complaint: No - Stat/Priority 1 Stat Priority 1: No - Urgent/Priority 2 Urgent Priority 2: No - Prompt/Priority 3 Prompt Priority 3: Yes Criteria Met for Priority 3: Pt is 34 0/7 with complaints of ctx and cramping with some vision changes, and headache Disposition - Disposition OB Disposition: Discharge to home Discharge Date: 07/09/24 Discharge Time: 22:30 I agree with the RN Medical Screening Exam: Yes Physician's MSE Comment: I have neither seen nor examined the patient Case reviewed; plan agreed upon as documented in EMR&OBIX.: Yes Diagnosis: RELATED CONDITIONS, UNSPECIFIED, THIRD TRIMESTER
== END 2024-07-09 22:30 | disposition home or self-care (01) ==
LOC: FBPOP 20:39
PROVIDERS: ATTEND Obstetrics & Gynecology
DX: O26.893 Other specified pregnancy related conditions, third trimester (principal); Z87.891 Personal history of nicotine dependence; Z3A.34 34 weeks gestation of pregnancy
CPT/HCPCS: 59025; 81001; 96360; 96365; 99214

== ENCOUNTER 2024-08-11 10:25 | Inpatient (IN) | payer BC, OTHER ==
[2024-08-11] MEDS ORDERED: METHYLERGONOVINE 0.2 MG/ML 1 ML AMP IM PRN (11:35)
[2024-08-11] MEDS ORDERED: CARBOPROST TROMETHAMINE 250 MCG/ML 1 ML AMP IM PRN (11:35)
[2024-08-11] MEDS ORDERED: TRANEXAMIC 1,000 MG/100ML-NACL 1,000 MG in EMPTY BAG 1 BAG IV PRN (11:35)
[2024-08-11] MEDS ORDERED: TERBUTALINE 1 MG/ML VIAL SQ PRN (11:35)
[2024-08-11] MEDS ORDERED: miSOPROStoL 200 MCG TAB RECTAL PRN (11:35)
[2024-08-11] MEDS ORDERED: miSOPROStoL 200 MCG TAB PO PRN (11:35)
[2024-08-11] MEDS ORDERED: OXYTOCIN 10 UNIT/ML 1 ML VIAL IM PRN (11:35)
[2024-08-11] MEDS ORDERED: LIDOCAINE 0.5% (PF) 5 MG/ML (50 ML SDV) SQ PRN (11:35)
[2024-08-11] MEDS ORDERED: OXYTOCIN 30 UNITS/500 ML NS 30 UNIT in SALINE 1 500ML.BAG IV SCH (11:45)
[2024-08-11] MEDS: LACTATED RINGERS 1,000 ML IV SCH (12:07)
[2024-08-11] MEDS: OXYTOCIN 30 UNITS/500 ML NS 30 UNIT in SALINE 1 500ML.BAG IV SCH (12:08)
[2024-08-11 12:12] LABS: Basophils # (A) 0.07 10*3/uL (0.00-0.10); Basophils % (A) 0.7 %; Eosinophils # (A) 0.06 10*3/uL (0.04-0.35); Eosinophils % (A) 0.6 %; HGB 12.4 g/dL (12.0-15.0); Lymphocytes # (A) 2.13 10*3/uL (0.90-5.00); Lymphocytes % (A) 22.2 %; MCH 30.2 pg (27.0-32.0); MCHC 34.4 g/dL (32.0-37.0); Mean Platelet Volume 9.7 fL (9.5-12.2); Monocytes # (A) 0.58 10*3/uL (0.20-1.00); Neutrophils # (A) 6.69 10*3/uL (1.80-7.70); Neutrophils % (A) 69.9 %; Platelet Count 294 10*3/uL (140-440); RDW 13.4 % (11.5-14.5); WBC 9.59 10*3/uL (4.50-10.00)
[2024-08-11 12:18] LABS: MCV 87.8 fL (80.0-97.0)
[2024-08-11] MEDS: NALBUPHINE 10 MG/ML (10 ML MDV) IV PRN (15:39)
[2024-08-11] MEDS ORDERED: LANOLIN CREAM 1 GM TUBE TOPICAL PRN (18:35)
[2024-08-11] MEDS ORDERED: diphenhydrAMINE 25 MG CAP PO PRN (18:35)
[2024-08-11] MEDS ORDERED: HYDROCORTISONE 2.5% RECTAL CREAM 30 GM TUBE RECTAL PRN (18:35)
[2024-08-11] MEDS ORDERED: diphenhydrAMINE 50 MG/ML 1 ML VIAL IVP PRN ×2 (18:35)
[2024-08-11] MEDS ORDERED: SIMETHICONE 80 MG CHEWABLE PO PRN (18:35)
[2024-08-11] MEDS ORDERED: diphenhydrAMINE 50 MG CAP PO PRN (18:35)
[2024-08-11] MEDS ORDERED: ZOLPIDEM 5 MG TAB PO PRN (18:35)
--- NOTE | 2024-08-11 18:41 | P.HPOB ---
History of Present Illness H&P Date: 08/11/24 Chief Complaint: 38-2/7 weeks, spontaneous rupture of membranes The patient is a 23-year-old 4 para 0-1-2-1 admitted at 38-2/7 weeks as established by good dating parameters. She is admitted with documented spontaneous rupture of membranes this morning after having been seen in the office at which time she complained of possible gush of fluid earlier. On labor delivery, all signs are reassuring with a category 1 heart rate tracing. She has been followed since the early third trimester for diagnosis of small for gestational age with the fetus growing between the 10th and 15th percentile. She has had weekly testing which was reassuring throughout. Her was otherwise uncomplicated though she did have an episode of labor for which she was sent to [facility] where she was stabilized and released to follow-up with us. She has had no further episodes since that time at approximately 32 to 33 weeks. Group B strep status is negative. Obstetrical history: 4 para 0-1-2-1 with 1 delivery at a pproximately 34 weeks. Current statistics are listed in history of present illness. EDC of 08/20/2024 was established by last menstrual period and confirmed by ultrasound. Laboratory workup demonstrates a blood type of O+ with a negative antibody screen. Rubella status is immune. The remainder of the laboratory workup was within normal limits. 1 hour Glucola was normal and group B strep status is negative though it is not documented as it was obtained at [facility]. Gynecologic history: Unremarkable with no history of any infections to include STDs. Review of Systems Review of systems is confined to history of present illness. Past Medical History Past Medical History: No Reported History Additional Past Medical History / Comment(s): depression, self-harm - cutting, ovarian cyst History of Any Multi-Drug Resistant Organisms: None Reported Past Surgical History: No Surgical Hx Reported Past Anesthesia/Blood Transfusion Reactions: No Reported Reaction Past Psychological History: Depression Smoking Status: Vaper Past Alcohol Use History: None Reported Past Drug Use History: None Reported - Past Family History Mother Family Medical History: Hypertension Medications and Allergies Home Medications Medication Instructions Recorded Confirmed Type Aspirin 81 mg PO DAILY 04/29/24 07/07/24 History Vit No.179/Iron/Folic 1 tab PO DAILY 04/29/24 07/07/24 History [ Tablet] Ferrous Sulfate [Iron (65 MG 1 tab PO DAILY 07/05/24 07/07/24 History Elemental)] Allergies Allergy/AdvReac Type Severity Reaction Status Date / Time No Known Allergies Allergy Verified 08/11/24 10:34 Exam Vital Signs Temp Pulse Resp BP 08/11/24 10:34 97.6 F 69 14 115/66 Intake and Output 08/11/24 08/11/24 08/11/24 06:59 14:59 22:59 Other: Weight 50.349 kg In general, this is a well-developed, well-nourished though thin white female in no acute distress. Her heart has a regular rhythm and rate without murmur. Her lungs are clear to auscultation bilaterally in all merchant. Her abdomen is gravid, nondistended, has normal active bowel sounds, soft, nontender, and without any palpable masses aside from uterine fundus. Her extremities are without any cyanosis, clubbing, or edema and are nontender to palpation bilaterally. Digital cervical examination at admission was approximately 3 cm dilated, 70% effaced, with the vertex and presentation at -1-2 station. Spontaneous rupture of membranes is confirmed. Results Result Diagrams: 08/11/24 11:54 Abnormal Lab Results - Last 24 Hours (Table) 08/11/24 Range/Units 11:54 Hct 36.0 L (37.2-46.3) % Immature Gran # 0.06 H (0.00-0.04) 10*3/uL Assessment and Plan (1) Small for gestational age fetus Current Visit: Yes Status: Acute Code(s): QKP7479 - SNOMED Code(s): 191328567 (2) Spontaneous rupture of amniotic membranes Current Visit: Yes Status: Acute Code(s): NSO5429 - SNOMED Code(s): 094088519 (3) Active labor at term Current Visit: Yes Status: Acute Code(s): SZH9007 - SNOMED Code(s): 80365338 Plan: The patient is admitted for active management of labor. As her rupture of membranes occurred several hours prior to admission, Pitocin augmentation was to be started immediately. She was to have close maternal and surveillance and expectant management to be practiced. She was a good candidate for either IV or epidural analgesia, which she may choose.
--- NOTE | 2024-08-11 18:43 | P.PROBDLV ---
Vaginal Delivery Note - . Vaginal Delivery Note: The patient is a 23-year-old 4 para 0-1-2-1 presents to labor and delivery at 38-2/7 weeks by good dating parameters. She presents with possible rupture of membranes which is documented in triage. All signs are reassuring with a category 1 heart rate tracing. Her was complicated by a fetus judged to be small for gestational age by ultrasound at between the 10th and 15th percentile in the third trimester. testing was routine and reassuring throughout. Group B strep status is negative which was noted at a time when she was transferred to [facility] for labor at approximately 33 4 weeks of gestation. On labor delivery, she had Pitocin augmentation started she may progress to the active phase of labor and declined epidural analgesia. She continued to progress to complete and then pushed over the course of approximately 2 contractions to a normal spontaneous vaginal delivery of a viable 6 pound 12 ounce baby girl with Apgars of 8 at 1 minute and 9 at 5 minutes delivered in the direct occiput anterior position. The placenta was delivered spontaneously, intact, and grossly normal with a grossly normal three-vessel cord inserted approximately 4 cm from the margin of the placental disc. There was a very small first-degree midline perineal laceration repaired with a single [id number] stitch of 3-0 chromic catgut without difficulty. Estimated blood loss for the case was approximately 150 mL. There were no complications. All sponge, instrument, and needle counts were correct. Both mother and are resting comfortably in recovery.
[2024-08-11] MEDS: IBUPROFEN 800 MG TAB PO PRN (18:56)
[2024-08-11 19:41] VITALS: RESP 16
[2024-08-11] MEDS: SENNOSIDES-DOCUSATE SODIUM 1 EACH TAB PO SCH (21:41)
[2024-08-11] MEDS: ACETAMINOPHEN TAB 500 MG TAB PO PRN (22:25)
[2024-08-11] MEDS: BENZOCAINE/MENTHOL SPRAY 1 GM/SPRAY AEROSOL TOPICAL PRN (22:26)
[2024-08-12 04:25] LABS: Basophils # (A) 0.06 10*3/uL (0.00-0.10); Basophils % (A) 0.6 %; Eosinophils # (A) 0.05 10*3/uL (0.04-0.35); Eosinophils % (A) 0.5 %; HCT 27.2 % (37.2-46.3); Lymphocytes # (A) 2.04 10*3/uL (0.90-5.00); Lymphocytes % (A) 18.9 %; MCH 30.8 pg (27.0-32.0); MCHC 34.9 g/dL (32.0-37.0); MCV 88.3 fL (80.0-97.0); Mean Platelet Volume 10.1 fL (9.5-12.2); Monocytes # (A) 0.93 10*3/uL (0.20-1.00); Monocytes % (A) 8.6 %; Neutrophils # (A) 7.67 10*3/uL (1.80-7.70); Neutrophils % (A) 70.8 %; Platelet Count 216 10*3/uL (140-440); RBC 3.08 10*6/uL (4.10-5.20); RDW 13.5 % (11.5-14.5); WBC 10.81 10*3/uL (4.50-10.00)
[2024-08-12 04:29] LABS: HGB 9.5 g/dL (12.0-15.0)
--- NOTE | 2024-08-12 10:26 | P.DS ---
Providers Date of admission: 08/11/24 11:15 Expected date of discharge: 08/12/24 Attending physician: Phoenix Nathan Primary care physician: Stated None - Discharge Diagnosis(es) (1) Small for gestational age fetus Current Visit: Yes Status: Acute (2) Spontaneous rupture of amniotic membranes Current Visit: Yes Status: Acute (3) Active labor at term Current Visit: Yes Status: Acute (4) Normal spontaneous vaginal delivery Current Visit: Yes Status: Acute Hospital Course: The patient is a 23-year-old 4 para 0-1-2-1 admitted at 38-2/7 weeks by good dating parameters. She is admitted with documented spontaneous rupture of membranes earlier in the morning and was seen at an office visit at which time this was suspected and she was sent for evaluation. Spontaneous rupture of membranes was confirmed. On labor delivery, all signs were reassuring with a category 1 heart rate tracing. Her was complicated by consistent small for gestational age fetus at between the 10th and 15th percentile of growth for which she had weekly testing that was reassuring. She did have an episode of labor at approximately 33 weeks of gestation and was sent to [facility] where she was stabilized and released. On labor delivery, she had Pitocin augmentation started and made progress through the active phase of labor steadily. She ultimately progressed to complete and then pushed over the course of 1 or 2 contractions to a normal spontaneous vaginal delivery of a viable 6 pound 12 ounce baby girl with Apgars of 8 at 1 minute and 9 at 5 minutes. Her course was unremarkable with vital signs remaining stable and her temperature was afebrile throughout. She was deemed stable for discharge on day #1 and was discharged home to follow-up in the office in 6 weeks time routinely. Discharge instructions included calling for any significantly increased bleeding or foul-smelling lochia, significantly increased fever abdominal pain, perineal complaints, breast complaints, or anything else that concerned her. She was additionally instructed to have nothing in the vagina for at least 6 weeks time to include intercourse. She understood her instructions and agrees to follow-up as noted above. Discharge medications included continued vitamins as she has opted to breast-feed. She was otherwise to use [id number] analgesic pain medications as needed. Maternal blood type is O+ and rubella status is immune. Procedures: #1. Pitocin augmentation #2. Normal spontaneous vaginal delivery #3. Repair of perineal laceration Patient Condition at Discharge: Stable Plan - Discharge Summary New Discharge Prescriptions: No Action Vit No.179/Iron/Folic [ Tablet] 1 tab PO DAILY RX: Aspirin 81 mg PO DAILY Ferrous Sulfate [Iron (65 MG Elemental)] 1 tab PO DAILY Discharge Medication List Vit No.179/Iron/Folic [ Tablet] 1 tab PO DAILY 04/29/24 [History] RX: Aspirin 81 mg PO DAILY 04/29/24 [History] Ferrous Sulfate [Iron (65 MG Elemental)] 1 tab PO DAILY 07/05/24 [History] Follow up Appointment(s)/Referral(s): Phoenix Nahtan MD [STAFF PHYSICIAN] - 6 Weeks Discharge Disposition: HOME SELF-CARE
[2024-08-12 16:04] VITALS: BP 94/57; PULSE 68; TEMP 97.6
== END 2024-08-12 19:15 | disposition home or self-care (01) | DRG 807 ==
LOC: FBPOP 10:25 → 4FBP 11:15
PROVIDERS: ADMIT Obstetrics & Gynecology; ATTEND Obstetrics & Gynecology
PROC: 10E0XZZ Delivery of Products of Conception, External Approach (ICD-10-PCS; principal; 2024-08-11)
PROC: 0HQ9XZZ Repair Perineum Skin, External Approach (ICD-10-PCS; 2024-08-11)
PROC: 3E033VJ Introduction of Other Hormone into Peripheral Vein, Percutaneous Approach (ICD-10-PCS; 2024-08-11)
DX: O42.02 Full-term premature rupture of membranes, onset of labor within 24 hours of rupture (principal); Z37.0 Single live birth; O36.5930 Maternal care for other known or suspected poor fetal growth, third trimester, not applicable or unspecified; F32.A Depression, unspecified; O62.3 Precipitate labor; O70.0 First degree perineal laceration during delivery; O99.344 Other mental disorders complicating childbirth; Z3A.38 38 weeks gestation of pregnancy; Z79.82 Long term (current) use of aspirin
CPT/HCPCS: 59025; 84112; 85025; 86850; 86900; 86901; 99213